=== PATIENT | male | born 2000 | race Caucasian/White ===

== ENCOUNTER → 2021-04-22 12:04 | Outpatient (CLI) | payer SELFPAY ==
[2021-04-22 12:46] LABS: COVID19 -Nasal RAPID Negative (Negative)
== END ==
PROVIDERS: PCP Nurse Practitioner Family; Visit Provider Nurse Practitioner Family
DX: J02.9 Acute pharyngitis, unspecified (principal); Z20.822 Contact with and (suspected) exposure to COVID-19
CPT/HCPCS: 87070; 87147; 87635